=== PATIENT | female | born 1955 | race Caucasian/White ===

== ENCOUNTER 2022-03-05 16:55 | Emergency (ER) | payer OTHER ==
[~2022-03-05] VITALS: Ht 160 cm; Wt 66.2 kg
[2022-03-05] MEDS ORDERED: AMOCLA875 PO (17:10)
== END 2022-03-05 17:14 | disposition home or self-care (01) ==
LOC: ER 16:55
DX: L03.317 Cellulitis of buttock (principal); L02.31 Cutaneous abscess of buttock
CPT/HCPCS: 99282